=== PATIENT | female | born 1960 ===

== ENCOUNTER 2023-05-30 15:00 | Outpatient (CLI) | payer OTHER, SELFPAY ==
--- NOTE | ~2023-05-30 | CT_ITS ---
EXAMINATION: CT abdomen pelvis wo/w con DATE: 05/30/2023 15:44 INDICATION: Microscopic hematuria. TECHNIQUE: Computed tomography (CT) of the abdomen and pelvis was performed without and with intraven ous contrast using a total of 130 mL Omnipaque-350 intravenous contrast with a double-bolus technique for simultaneous opacification of the renal parenchyma and renal collecting system. Automated exposu re control and iterative reconstruction technique were employed. The dose-length product was 970.87 m Gy-cm. COMPARISON: None FINDINGS: The visualized portions of the lung bases demonstrate mild atelectasis. Emphysema is noted. There is a right posterior diaphragmatic hernia containing fat. No pleural effusion. The heart size is normal. No pericardial effusion. The liver, gallbladder, spleen, pancreas, adrenal glands, and left kidney a re normal. There are cysts in right kidney measuring up to 14 mm. There is no urolithiasis. The urete rs are not well opacified distally, but are normal. The bladder is normal. There are no dilated loops of bowel. The appendix is normal. There is calcified atherosclerosis of the aorta and many of the ot her arteries. There are no pathologically enlarged lymph nodes. There is no free intraperitoneal flui d. There is mild lumbar spondylosis. IMPRESSION: 1. No etiology for hematuria. Reviewed, dictated and finalized at location E.
[2023-05-30 15:19] LABS: Estimated Glomerular Filt Rate > 60
== END 2023-05-30 15:01 ==
LOC: MICIMG 15:02
PROVIDERS: PCP Urology; Visit Provider Urology
DX: R31.29 Other microscopic hematuria (principal)
CPT/HCPCS: 74178; Q9967